=== PATIENT | female | born 2000 | race American Indian/Alaskan Native ===

== ENCOUNTER 2020-12-23 22:53 | Emergency (ER) | payer SELFPAY ==
[2020-12-23 23:01] VITALS: BP 134/73
--- NOTE | 2020-12-23 23:55 | Emergency Department Report ---
ED Eye Problem HPI - General Chief complaint: Eye Problems Stated complaint: POSSIBLE PINK EYE Source: patient Mode of arrival: Ambulatory Limitations: No Limitations - History of Present Illness Initial comments: Patient is a 20-year-old -[place] female with no past medical history presents to the ED with complaint of acute onset persistent right eye pain with purulent discharge and matting for the last 3 days. Patient states that she initially started having nasal and sinus congestion a week ago but now her symptoms have been persistent and worse in the last 6 hours. Patient denies vision loss, headache, fever, chills, cough, sore throat, traumatic injury, nausea and vomiting or neck pain. MD chief complaint: eye pain (right), eye redness (right), other (right eyue discharge and matting) -: Sudden, days(s) (3) Onset Description: sudden Location: right eye Place: home If Injury: none Eye Symptoms: redness, pain, discharge Severity: moderate Severity scale (0 -10): 4 If Pain, Quality: aching Consistency: constant Context: recent uri Associated Symptoms: none, rhinorrhea. denies: headache, neck pain, nausea/vomiting, cough, fever, shortness of breath, other Treatments Prior to Arrival: none - Related Data Patient Tetanus UTD: Yes Previous Rx's Medication Instructions Recorded Last Taken Type Gentamicin 0.3% Ophth Soln 1 drops OP Q4H #5 ml 12/23/20 Unknown Rx Allergies Allergy/AdvReac Type Severity Reaction Status Date / Time No Known Allergies Allergy Unverified 10/18/18 22:59 ED Review of Systems ROS: Stated complaint: POSSIBLE PINK EYE Other details as noted in HPI Constitutional: denies: chills, fever Eyes: eye pain (right eye pain), eye discharge (right eye discharge and matting). denies: vision change ENT: denies: ear pain, throat pain Respiratory: denies: cough, shortness of breath, wheezing Cardiovascular: denies: chest pain, palpitations Endocrine: no symptoms reported Gastrointestinal: denies: abdominal pain, nausea, vomiting, diarrhea Genitourinary: denies: urgency, dysuria, discharge Musculoskeletal: denies: back pain, joint swelling, arthralgia Skin: denies: rash, lesions Neurological: denies: headache, weakness, paresthesias Psychiatric: denies: anxiety, depression Hematological/Lymphatic: denies: easy bleeding, easy bruising ED Past Medical Hx - Past Medical History Previous Medical History?: No - Surgical History Past Surgical History?: Yes Additional Surgical History: x1 - Social History Smoking Status: Current Every Day Smoker Substance Use Type: None - Medications Home Medications: Home Medications Medication Instructions Recorded Confirmed Last Taken Type Gentamicin 0.3% Ophth Soln 1 drops OP Q4H #5 ml 12/23/20 Unknown Rx ED Physical Exam - General Limitations: No Limitations General appearance: alert, in no apparent distress - Head Head exam: Present: atraumatic, normocephalic, normal inspection - Eye Eye exam: Present: PERRL, EOMI, other (Mildly erythematous right conjunctiva with mild purulent discharge and matting) Pupils: Present: normal accommodation - ENT ENT exam: Present: normal exam, normal orophraynx, mucous membranes moist, TM's normal bilaterally, normal external ear exam - Neck Neck exam: Present: normal inspection, full ROM. Absent: tenderness, lymphadenopathy - Respiratory Respiratory exam: Present: normal lung sounds bilaterally. Absent: respiratory distress, wheezes, rales, rhonchi, chest wall tenderness, accessory muscle use, decreased breath sounds, prolonged expiratory - Cardiovascular Cardiovascular Exam: Present: regular rate, normal rhythm, normal heart sounds. Absent: systolic murmur, diastolic murmur, rubs, gallop - GI/Abdominal GI/Abdominal exam: Present: soft, normal bowel sounds. Absent: tenderness, guarding, rebound, hyperactive bowel sounds, hypoactive bowel sounds, organomegaly - Extremities Exam Extremities exam: Present: normal inspection, full ROM, normal capillary refill - Back Exam Back exam: Present: normal inspection, full ROM. Absent: tenderness, CVA tenderness (R), muscle spasm, paraspinal tenderness, vertebral tenderness, rash noted - Neurological Exam Neurological exam: Present: alert, oriented X3, CN II-XII intact, normal gait, reflexes normal - Psychiatric Psychiatric exam: Present: normal affect, normal mood - Skin Skin exam: Present: warm, dry, intact, normal color. Absent: rash ED Course Vital Signs 12/23/20 22:59 Temperature 98.7 F Pulse Rate 93 H Respiratory 17 Rate Blood Pressure 134/73 O2 Sat by Pulse 93 Oximetry ED Medical Decision Making - Medical Decision Making This is a 20-year-old -[place] female with no past medical history presents to the ED with complaint of acute onset persistent right eye pain with purulent discharge and matting for the last 3 days. Patient states that she initially started having nasal and sinus congestion a week ago but now her symptoms have been persistent and worse in the last 6 hours. In the ED, patient is alert and oriented x3 and is not in distress with normal vital signs. Urinalysis unremarkable. Patient was discharged home on medications and advised to follow-up with her primary care physician in 5 to 7 days for reevaluation. Patient was advised return to the ED immediately if symptoms get worse. - Differential Diagnosis Bacterial conjunctivitis; viral conjunctivitis; allergic conjunctivitis Critical care attestation.: If time is entered above; I have spent that time in minutes in the direct care of this critically ill patient, excluding procedure time. ED Disposition Clinical Impression: Acute bacterial conjunctivitis of right eye Disposition: DC-01 TO HOME OR SELFCARE Is pt being admited?: No Does the pt Need Aspirin: No Condition: Stable Instructions: How to Use Eye Drops and Eye Ointments Additional Instructions: Apply the ointment to the affected eye as advised, take medication as needed for pain, drink plenty of fluids and follow-up with your primary care physician in 7 to 10 days for reevaluation. Return to the ED immediately if symptoms get worse. Prescriptions: Gentamicin 0.3% Ophth Soln 1 drops OP Q4H #5 ml Referrals: [facility] [Provider Group] - 7-10 days Forms: Work/School Release Form(ED) Time of Disposition: 01:07 Print Language: SLOV[place]
[2020-12-24 00:30] LABS: Bilirubin,Urine NEG (Negative); Blood,Urine NEG (Negative); Color,Urine Yellow (Yellow); Mucus,Urine 2+ /HPF; Protein,Urine <15 mg/dL mg/dL (Negative); Urobilinogen,Urine < 2.0 mg/dL (<2.0)
[2020-12-24 00:31] LABS: HCG Qualitative,Urine Negative (Negative)
== END 2020-12-24 01:17 | disposition home or self-care (01) ==
LOC: ED 22:53
DX: H10.31 Unspecified acute conjunctivitis, right eye (principal); F17.200 Nicotine dependence, unspecified, uncomplicated; Z79.899 Other long term (current) drug therapy; Z98.890 Other specified postprocedural states
CPT/HCPCS: 81001; 81025; 99283